=== PATIENT | female | born 1955 | race Caucasian/White ===

== ENCOUNTER 2020-01-18 18:10 | Emergency (ER) | payer BC ==
[2020-01-18 18:38] VITALS: BP 142/93; PULSE 95; TEMP 99; BMI 36.7
[2020-01-18] MEDS ORDERED: LIDOCAINE 5% TOPICAL PATCH TP ONE (19:26)
[2020-01-18] MEDS ORDERED: IBUPROFEN 600 MG TABLET (FP) PO ONE ×2 (19:26→19:28)
[2020-01-18] MEDS ORDERED: LIDOCAINE 5% TOPICAL PATCH ONE (19:28)
--- NOTE | 2020-01-18 20:26 | PDOC ---
Documentation entered by Magali Jara SCRIBE, acting as scribe for Jessica Triplett MD. Jessica Triplett MD: This documentation has been prepared by the scribeMarek Maria, SCRIBE, under my direction and personally reviewed by me in its entirety. I confirm that the documentation accurately reflects all work, treatment, procedures, and medical decision making performed by me. History of Present Illness - General Chief Complaint: Injury Stated Complaint: FALL, LEFT KNEE, LEFT ANKLE PAIN History Source: Patient Exam Limitations: No Limitations - History of Present Illness Initial Comments: 01/18/20 19:36 The patient is a 64 year old female who denies any past medical history who presents to the emergency department with an injury to her left knee and ankle. As per patient, she was food shopping at [facility] yesterday when she slipped and fell on a puddle of water causing her to fall and injure both her knees and left ankle. As per patient, she states she took tylenol and a warm epsom salt bath yesterday with minimal relief of pain prompting her to the ER. Denies LOC . Denies any head trauma. Past History - Medical History Allergies/Adverse Reactions: Allergies Allergy/AdvReac Type Severity Reaction Status Date / Time No Known Allergies Allergy Verified 01/18/20 18:13 Home Medications: Ambulatory Orders Acetaminophen [Tylenol -] 1,000 mg PO ASDIR 01/18/20 COPD: No Other medical history: pt denies - Psycho-Social/Smoking History Smoking History: Never smoked Have you smoked in the past 12 months: No Information on smoking cessation initiated: No - Substance Abuse Hx (Audit-C & DAST Scrn) How often the patient has a drink containing alcohol: Never Score: In Men: 4 or > Positive; In Women: 3 or > Positive: 0 Screen Result (Pos requires Nsg. Audit-10AR): Negative In the last yr the pt used illegal drug/Rx for NonMed reason: No Score: Yes response is considered Positive: 0 Screen Result (Positive result requires Nsg. DAST-10): Negative Review of Systems - Review of Systems Able to Perform ROS?: Yes Comments:: 01/18/20 19:36 GENERAL/CONSTITUTIONAL: No fever or chills. No weakness. HEAD, EYES, EARS, NOSE AND THROAT: No change in vision. No ear pain or discharge. No sore throat. CARDIOVASCULAR: No chest pain or shortness of breath. RESPIRATORY: No cough, wheezing, or hemoptysis. GASTROINTESTINAL: No nausea, vomiting, diarrhea or constipation. GENITOURINARY: No dysuria, frequency, or change in urination. MUSCULOSKELETAL:+left knee pain. +right ankle pain. No neck or back pain. SKIN: No rash NEUROLOGIC: No headache, vertigo, loss of consciousness, or change in strength/sensation. ENDOCRINE: No increased thirst. No abnormal weight change. HEMATOLOGIC/LYMPHATIC: No anemia, easy bleeding, or history of blood clots. ALLERGIC/IMMUNOLOGIC: No hives or skin allergy. *Physical Exam - Vital Signs Last Vital Signs Temp Pulse Resp BP Pulse Ox 99 F 95 H 18 142/93 96 01/18/20 18:10 01/18/20 18:10 01/18/20 18:10 01/18/20 18:10 01/18/20 18:10 - Physical Exam 01/18/20 19:36 GENERAL: Awake, alert, and fully oriented, in no acute distress HEAD: No signs of trauma EYES: PERRLA, EOMI, sclera anicteric, conjunctiva clear ENT: Auricles normal inspection, hearing grossly normal, nares patent, oropharynx clear without exudates. Moist mucosa NECK: Normal ROM, supple, no lymphadenopathy, JVD, or masses ABDOMEN: Soft, nontender, normoactive bowel sounds. No guarding, no rebound. No masses EXTREMITIES:+ 2cm circular left knee bruise. +1cm square bruise on the right knee.+ Malleolar tenderness to palpation on the left malleolus lateral aspect. Slight soft tissue swelling on the left ankle. Normal range of motion. No clubbing or cyanosis. No cords, erythema NEUROLOGICAL: Cranial nerves II through XII grossly intact. Normal speech, normal gait SKIN: Warm, Dry, normal turgor, no rashes or lesions noted. Medical Decision Making - Medical Decision Making 01/18/20 20:24 All XRAYS are normal; pt will be given 1 week off work to rest. Home with motrin OTC Discharge - Discharge Information Problems reviewed: Yes Clinical Impression/Diagnosis: Fall due to wet surface, Accidental injury, Ankle sprain, Knee contusion Condition: Stable - Follow up/Referral Referrals: Janak Magana MD [Primary Care Provider] - - Patient Discharge Instructions Patient Printed Discharge Instructions: DI for Ankle Sprain, How to Prevent Falls - Post Discharge Activity Work/Back to School Note: Back to Work
[2020-01-18] MEDS ORDERED: LIDOCAINE PATCH REMOVAL MC SCH (22:00)
--- NOTE | 2020-01-19 09:29 | EKG ---
Test Reason : Blood Pressure : / mmHG Vent. Rate : 084 BPM Atrial Rate : 084 BPM P-R Int : 176 ms QRS Dur : 086 ms QT Int : 368 ms P-R-T Axes : 057 019 045 degrees QTc Int : 434 ms SINUS RHYTHM WITH MARKED SINUS ARRHYTHMIA OTHERWISE NORMAL ECG NO PREVIOUS ECGS AVAILABLE Confirmed by Muna Lebron ([id number]) on 01/19/2020 9:28:48 AM Referred By: XAVIER Confirmed By:Muna Lebron
== END 2020-01-18 20:48 | disposition home or self-care (01) ==
LOC: FER 18:10
DX: S93.402A Sprain of unspecified ligament of left ankle, initial encounter (principal); S80.02XA Contusion of left knee, initial encounter; W01.0XXA Fall on same level from slipping, tripping and stumbling without subsequent striking against object, initial encounter
CPT/HCPCS: 71046-TC-FY; 73560-TC-LT-FY; 73610-TC-LT-FY; 93005; 99284-25